=== PATIENT | male | born 1950 | race Caucasian/White ===

== ENCOUNTER 2018-03-15 11:38 | Emergency (ER) | payer MEDICAID, MEDICARE ==
[2018-03-15] MEDS ORDERED: NS 0.9% 1000 ML* 1,000 ML IV ONE (12:14)
--- NOTE | 2018-03-15 12:19 | ED ---
Neck Pain - HPI Summary HPI Summary: A 67 y/o male presents to ED c/o headache and upper neck pain reaching 8/10 in severity. Additionally c/o nausea, appetite changes, tremors and lightheadedness. As per triage, "Pt c/o neck pain, lightheadeness, and nausea. Neck pain started a while ago and it was just when he woke up in the morning and would go away by afternoon". According to the patient, for the past 1-2 months he has been experiencing neck stiffness and soreness when he wakes up in the AM, however, as the day goes on it went away. However, the neck pain and headache has been constant for the past 2 weeks with additional symptoms of dizziness (off-balance), lightheadedness, tremors, sleep changes, appetite changes, nausea starting yesterday. He noted that it initially started with neck pain, but gradually made its way to his head with the pain worsening over time, with last night being the worse. Furthermore, the pain is at its worse when he wakes up in AM and sometimes wakes him up from his sleep. Denies any runny nose, sore throat, chest pain/congestion, back pain, vision changes, difficulty with speech, weakness, or numbness in arms/legs. He noted that 1.5 years ago he had an issue with his throat as it he had difficulty swallowing. His physician referred him to a NT physician where an endoscopy and barium swallow where both tests were negative. He stated that it was found that it looks like his spine is pushing against his esophagus, however his difficulty swallowing and symptoms never went away. Head movement aggravates the symptoms, and the patient needs to ambulate slowly to evade the dizziness. He noted that he was able to eat yesterday AM. Patient takes several medications. Patient took Benadryl last night. Patient was on vacation recently, but he brought his own pillows from home. - History of Current Complaint Chief Complaint: EDNeckComplaint Stated Complaint: NECK PAIN, HEADACHE,LIGHTHEADED Time Seen by Provider: 03/15/18 11:59 Hx Obtained From: Patient Onset/Duration Of Injury/Symptoms: Days - Worst with additional symptoms since yesterday Mechanism Of Injury: No Known Trauma Timing: Constant, Lasting Weeks Onset/Duration: Sudden Onset, Started weeks ago, Still Present Severity Initially: Severe Severity Currently: Severe Pain Intensity: 8 Pain Scale Used: 0-10 Numeric Location: Discrete At: - Neck and head Aggravating Factors: Movement - Head movement and ambulance brings on dizziness Alleviating Factors: Nothing Associated Signs & Symptoms: Positive: Headache. Negative: Weakness - Allergies/Home Medications Allergies/Adverse Reactions: Allergies Allergy/AdvReac Type Severity Reaction Status Date / Time No Known Allergies Allergy Verified 03/15/18 11:48 Home Medications: Home Medications Omeprazole 40 mg PO BID 03/15/18 [History Confirmed 03/15/18] Simvastatin (NF) [Zocor (NF)] 40 mg PO BEDTIME 03/15/18 [History Confirmed 03/15] PMH/Surg Hx/FS Hx/Imm Hx Endocrine/Hematology History: Denies: Hx Diabetes Cardiovascular History: Reports: Hx Hypertension Respiratory History: Denies: Hx Asthma - Surgical History Surgery Procedure, Year, and Place: tonsillectomy as a childoral surgeries. left leg fx - surgical repair with leonor in place Infectious Disease History: No Infectious Disease History: Reports: Hx Shingles Denies: History Other Infectious Disease, Traveled Outside the [place] in Last 30 Days - Family History Known Family History: Positive: Cardiac Disease, Hypertension, Other - CVA, [place] - Social History Alcohol Use: None Substance Use Type: Reports: None Smoking Status (MU): Never Smoked Tobacco Review of Systems Negative: Fever Negative: Blurred Vision Negative: Sore Throat, Nasal Discharge Negative: Chest Pain - NEGATIVE: Congestion Positive: Nausea, Other - POSITIVE: Appetite changes Positive: Other - POSITIVE: Upper neck pain, tremors Neurological: Other - POSITIVE: sleep changes, lightheadedness, dizziness Positive: Headache. Negative: Weakness, Numbness All Other Systems Reviewed And Are Negative: Yes Physical Exam - Summary Physical Exam Summary: General: well-appearing, mild pain distress Skin: warm, color reflects adequate perfusion, dry Head: normal Eyes: EOMI, YARITZA ENT: normal Neck: supple, nontender Respiratory: CTA, breath sounds present Cardiovascular: RRR Abdomen: soft, nontender Bowel: present Musculoskeletal: normal, strength/ROM intact Neurological: sensory/motor intact, A&O x3 Psychological: affect/mood appropriate GCS: 15 Triage Information Reviewed: Yes Vital Signs On Initial Exam: Initial Vitals Temp Pulse Resp BP Pulse Ox 98.8 F 83 16 154/96 97 03/15/18 11:45 03/15/18 11:45 03/15/18 11:45 03/15/18 11:45 03/15/18 11:45 Vital Signs Reviewed: Yes Diagnostics - Vital Signs Vital Signs Temp Pulse Resp BP Pulse Ox 03/15/18 11:45 98.8 F 83 16 154/96 97 - Laboratory Result Diagrams: 03/15/18 12:30 03/15/18 12:30 Lab Statement: Any lab studies that have been ordered have been reviewed, and results considered in the medical decision making process. - CT CTA HEAD/NECK CT Interpretation Completed By: Radiologist - 1. No acute arterial abnormality including abrupt occlusion, hemorrhage, aneurysm or dissection. 2. Mostly calcified atherosclerosis of the bilateral carotid bulbs yielding approximately 50% degree narrowing on the right and 42% degree narrowing in the left. 3. Focus of coarse calcification at the proximal most segment of the right subclavian artery. Please correlate to any clinical signs of right upper extremity arterial deficiency including asymmetric blood pressures, right arm claudication or subclavian. ED PHYSICIAN REVIEWED THIS RADIOLOGY REPORT. steal phenomenon. 3. Additional chronic and degenerative changes described in the body the report. Neck Course/Dx - Course Course Of Treatment: Medications reviewed. Allergies noted. DISCUSSED RESULTS WITH THE PATIENT AND HIS . THE PLAN IS IBUPROFEN AND PREDNISONE; F/U PMD/ NEUROSURGERY, RETURN TO ED IF WORSE. - Diagnoses Provider Diagnoses: Neck pain, Headache Discharge - Sign-Out/Discharge Documenting (check all that apply): Patient Departure - DISCHARGE - Discharge Plan Condition: Stable Disposition: HOME Prescriptions: predniSONE TAB* [Deltasone 20 MG TAB*] 40 mg PO DAILY #10 tab Patient Education Materials: Acute Headache (ED), Neck Pain (ED) Referrals: John Nguyen MD [Medical Doctor] - Khadar Cortez MD [Primary Care Provider] - Additional Instructions: FOLLOW UP WITH YOUR PRIMARY CARE DOCTOR AND NEUROSURGERY. GET RECHECKED FOR ANY WORSENING OF YOUR CONDITION; PAIN, WEAKNESS, YOU FEEL ILL OR QUESTIONS OR CONCERNS. - Billing Disposition and Condition Condition: STABLE Disposition: Home - Attestation Statements Document Initiated by Scribe: Yes Documenting Scribe: Samir Egan Provider For Whom Scribe is Documenting (Include Credential): Chris Dupree MD Scribe Attestation: ISamir, scribed for Chris Dupree MD on 03/15/18 at 1821. Scribe Documentation Reviewed: Yes Provider Attestation: The documentation as recorded by the scribe, Samir Egan accurately reflects the service I personally performed and the decisions made by me, Chris Dupree MD
[2018-03-15 12:45] LABS: ABS Basophils 0 10^3/ul (0-0.2); ABS Eosinophils 0 10^3/ul (0-0.6); ABS Lymphocytes 1.7 10^3/ul (1.0-4.8); ABS Monocytes 1.3 10^3/ul (0-0.8); ABS Neutrophils 6.2 10^3/ul (1.5-7.7); ABS Nucleated RBC 0 10^3/ul; Eosinophil % 0.1 % (0-6); Hematocrit 47 % (42-52); Hemoglobin 16.3 g/dl (14.0-18.0); Lymphocyte % 18.6 % (25-47); Mean Corpuscular HGB Conc 34 g/dl (31-36); Mean Corpuscular Hemoglobin 32 pg (27-31); Mean Corpuscular Volume 92 fL (80-94); Mean Platelet Volume 8.6 um3 (7.4-10.4); Nucleated Red Blood Cells % 0.1; Platelet Count 193 10^3/ul (150-450); Red Blood Count 5.17 10^6/ul (4.00-5.40); Red Cell Distribution Width 14 % (10.5-15); White Blood Count 9.4 10^3/ul (3.5-10.8)
[2018-03-15 12:51] LABS: INR 0.97 (0.77-1.02)
[2018-03-15 12:53] LABS: EGFR Non-African American 54.7 (>60)
[2018-03-15] MEDS ORDERED: Iodixanol* (CONTRAST) 320 MG/ML 100 ML SDV IV ONE (13:02)
--- NOTE | 2018-03-15 13:58 | RAD ---
CPT II: CPT II Codes: 3100F INDICATION: Occipital headache and upper neck pain COMPARISON: None TECHNIQUE: A CT angiogram of the head and neck was performed before and after the injection of 80 cc of Visipaque 320. Contiguous axial sections were obtained from the thoracic inlet through the [place] of [place]. Images were reconstructed in the sagittal, coronal planes and in a 3-D volume rendered format. The distal cervical internal carotid artery diameter is used as the denominater for stenosis measurement. CTA NECK: There is a focus of coarse calcification at the proximal most portion of the right subclavian artery (series 7 image 29) immediately beyond the bifurcation of the subclavian and right common carotid arteries. The common and internal carotid arteries are patent without hemodynamically significant stenosis. Right: The low the carotid bifurcation the common carotid artery measures just under 8 mm in diameter. There is mixed attenuation, mostly calcified atherosclerosis narrowing the carotid bulb to 4 mm in diameter. This yields an approximate 50% degree stenosis. Left: Below the carotid bulb the left carotid artery measures 7 mm in diameter. There is coarse atherosclerotic calcification at the carotid bulb narrowing the lumen to 4 mm corresponding to approximately 42% degree stenosis. The vertebral arteries are patent without gross abnormality. CTA of the brain: The internal carotid, anterior and middle cerebral arteries appear are patent without high grade stenosis or occlusion. There is coarse atherosclerotic calcification of the petrous carotid arteries but patency appears to be maintained adequately. The vertebral, basilar and posterior cerebral arteries appear patent without high grade stenosis or occlusion. The [place] of [place] is complete with bilateral posterior communicating arteries identified. No focal luminal filling defect, aneurysm or vascular malformation is seen. NON-ARTERIAL FINDINGS: Degenerative changes of the cervical spine includes loss of intervertebral disc height and mild anterior marginal osteophyte formation at C4-C7. The visualized lung apices exhibit mild groundglass opacifications. IMPRESSION: 1. No acute arterial abnormality including abrupt occlusion, hemorrhage, aneurysm or dissection. 2. Mostly calcified atherosclerosis of the bilateral carotid bulbs yielding approximately 50% degree narrowing on the right and 42% degree narrowing in the left. 3. Focus of coarse calcification at the proximal most segment of the right subclavian artery. Please correlate to any clinical signs of right upper extremity arterial deficiency including asymmetric blood pressures, right arm claudication or subclavian steal phenomenon. 3. Additional chronic and degenerative changes described in the body the report.
[2018-03-15] MEDS ORDERED: predniSONE TAB* 20 MG PO ONE (15:18)
[2018-03-15] MEDS ORDERED: Ketorolac INJ* 30 MG/ML 1 ML VIAL IV ONE (15:18)
[2018-03-15 15:46] VITALS: BP 156/105
== END 2018-03-15 15:47 | disposition home or self-care (01) ==
LOC: ED 11:38
DX: M54.2 Cervicalgia (principal); R51 Headache; I65.23 Occlusion and stenosis of bilateral carotid arteries; I70.8 Atherosclerosis of other arteries; R42 Dizziness and giddiness; R11.0 Nausea
CPT/HCPCS: 36415; 70496; 70498; 80053; 84443; 85025; 85610; 85730; 86140; 86618; 96360; 96361; 96374; 99283; J1885; J7512; Q9967

== ENCOUNTER 2018-03-28 10:05 | Emergency (ER) | payer MEDICAID, MEDICARE ==
--- OUTSIDE RECORDS SUMMARY | 2018-03-28 10:19 | XMS REPORT ---
:1950 External Reference #:[id number] Author Organization [facility] Address [address] [place] [address] [place] [address] Phone [phone] Care Team Providers Name Role Phone Khadar Cortez III, MD Primary Care Physician Unavailable Payers Type Date Identification Numbers Payment Provider Subscriber Medicare Primary Effective: Policy Number: Medicare Jacey Adams 2011 [id number] PayID: [id number] [address] [place] [address] Medigap Part B Expires: 2015 Policy Number: [employer] Medicare Jacey Adams [id number] PayID: [id number] [address] [place] [address] Commercial Effective: 2011 Policy Number: [id number] So-Hi Jacey Adams Expires: 2016 Group Name: [id number] [address] PayID: [id number] [place] [address] Medigap Part B Policy Number: [id number] Medicaid Jacey Adams Group Name: 1 1 [address] PayID: [id number] [place] [address] Problems Date Description Provider Status Onset: 04/19/2011 Tobacco user Adwoa Gutierrez M.D. Active Onset: 04/19/2011 Neck pain Adwoa Gutierrez M.D. Active Onset: 08/30/2011 Disorder of lipid metabolism Adwoa Gutierrez M.D. Active Onset: 08/30/2011 Pure hypercholesterolemia Nurse Visit [facility] Active Onset: 08/30/2011 Benign essential hypertension Nurse Visit [facility] Active Onset: 06/29/2015 Essential hypertension Adwoa Gutierrez M.D. Active Family History Date Family Member(s) Problem(s) Comments General Heart Disease General Emphysema Social History Type Date Description Comments Lives With Alone Occupation [employer] to[employer] work Cigarette Use Pack Years - 35 1 ppd max; began age 21 Smoking Patient is a former smoker quit around 2010 Recreational Drug Use Never Used Drugs Exercise Type/Frequency Exercises regularly Exercise Type/Frequency golf summer General Hx Text geoffrey laid off cig 1.5 pk per day 30 yr etoh no exercise soft ball, golf 1 daughter no illegal drugs Allergies, Adverse Reactions, Alerts Date Description Reaction Status Severity Comments 04/19/2011 NKDA active Medications Medication Date Status Form Strength Qnty SIG Indications Ordering Provider Simvastatin 10/08/ Active Tablets 40mg 90tab 1 by mouth Khadar Palmer 2012 s every night Dana, at bedtime M.D. Enalapril 10/14/ Active Tablets 5mg 30tab take 1 I10 Khadar Palmer Maleate 2011 s tablet by Dana mouth once M.D. daily Omeprazole / Active Capsules 40mg 1 by mouth Unknown 0000 DR every day Ibuprofen / Active Capsules 200mg as needed Unknown 0000 Prednisone / Hx Tablets 20mg Leia 0000 - Chris 03/20/ MD Jose Alberto 2017 Triamcinolone 10/02/ Hx Ointment 0.1% 45gm apply to L82.0 Adwoa Acetonide 2016 - rash on Matt 07/01/ arms 2x per M.D. 2016 day Venlafaxine HCL 12/29/ Hx Tablets 37.5mg 49tab 1 tablets 272.0 Adwoa 2014 - s by mouth Matt 12/29/ every day M.D. 2014 for 1 week and the 2 tab by mouth every day for 3 Amoxicillin/Cla 07/26/ Hx Tablets 875-125mg 14tab 1 tab by 681.11 Adwoa vulanate 2014 - s mouth 2x Matt, Potassium 11/22/ per day M.D. 2014 Guaifenesin 06/30/ Hx Tablets 400mg 40tab 1 tab po Adwoa 2013 - s every 6 Matt 07/26/ hours as M.D. 2014 needed for congestion Doxycycline 06/28/ Hx Tablets 100mg 20tab 1 by mouth 466.0 Adwoa Hyclate 2013 twice a day Matt M.D. 2014 Guaifenesin ER 06/28/ Hx Tablets ER 600mg 60tab 1 by mouth 466.0 Adwoa 2013 - HR s twice a day Matt M.D. 2014 Triamcinolone 05/10/ Hx Cream 0.1% 60gm apply thin Adwoa Acetonide 2014 - film twice Matt 06/29/ daily M.D. 2014 Triamcinolone 04/20/ Hx Paste 0.1% 45gm apply to 705.81 Adwoa In Mtaba 2012 - rash 2x per Matt 06/22/ day M.D. 2012 Colace 12/03/ Hx Capsules 100mg 60cap 1 po bid 564.00 Adwoa 2012 Matt M.D. 2013 Chantix 05/28/ Hx Tablets 0.5mg X 11 QS take as Adwoa Starting Month 2011 - & 1 mg X directed Evans Gutierrez 10/08/ (0.5 mg po M.D. 2012 daily x3 days, 0.5 mg bid x 4 days, then 1 mg bid up to three months) Chantix 05/26/ Hx Tablets 1mg 60tab 1 tab po V15.82 Adwoa Continuing 2011 bid Sekou Gutierrez .D. 2011 Simvastatin 05/26/ Hx Tablets 20mg 30tab 1 po qd Adwoa 2011 Matt M.D. 2012 Simvastatin 01/02/ Hx Tablets 10mg 30tab take 1 Adwoa 2011 tablet at Matt 05/26/ bedtime M.D. 2011 Chantix 10/10/ Hx Tablets 1mg 60tab 1 po bid 305.1 Adwoa 2011 Matt .D. 2011 Lisinopril 09/12/ Hx Tablets 10mg 30tab 1 po qd 401.1 Adwoa 2011 - Matt .D. 2011 Atorvastatin 09/10/ Hx Tablets 10mg 30tab 1 po daily Josie Calcium 2011 Javier M.D. 2011 Robaxin-750 05/16/ Hx Tablets 750mg 50tab 1-2 po q John Lopez 2011 - s 8hrs prn Robin, muscle MRoss 2011 spasm Lipitor 05/10/ Hx Tablets 10mg 30tab 1 po qhs Partha 2010 s Jeff Ray, 09/10/ M.D.,FACP 2011 Chantix 04/19/ Hx Tablets 0.5mg X 11 1mont 1 po bid 305.1 Adwoa 2010 - & 1 mg X h Matt, M.D. 2011 Diovan / Hx Tablets 80mg 14tab 1 po qd Adwoa - s Matt, M.D. 2011 Enalapril / Hx Tablets 5mg 90tab 1 po qd Unknown Maleate 0000 - s 2011 Amoxicillin / Hx Capsules 500mg 4caps 4 tablets 1 Unknown 0000 - hour before 04/20/ dental work 2012 Omeprazole / Hx Capsules 20mg 90cap 1 po qd Unknown 0000 - DR s 2014 Pantoprazole / Hx Tablets DR 20mg 1 by mouth Unknown Sodium 0000 - every day 2015 Immunizations CPT Code Status Date Vaccine Lot # 30539 Given 05/14/2017 Pneumococcal Conjugate Vaccine 13 Valent For Intramuscular Use Vital Signs Date Vital Result Comment 03/19/2018 Height 68.5 inches 5'8.50" Weight 168.00 lb with shoes Heart Rate 70 /min BP Systolic 148 mmHg sitting left arm BP Diastolic 72 mmHg sitting left arm Body Temperature 98.2 F O2 % BldC Oximetry 94 % BMI (Body Mass Index) 25.2 kg/m2 2017 Height 68.5 inches 5'8.50" Weight 191.00 lb Heart Rate 63 /min BP Systolic Sitting 132 mmHg BP Diastolic Sitting 86 mmHg Body Temperature 98.4 F O2 % BldC Oximetry 96 % BMI (Body Mass Index) 28.6 kg/m2 10/17/2016 Weight 190.00 lb Heart Rate 82 /min BP Systolic Sitting 138 mmHg BP Diastolic Sitting 86 mmHg Respiratory Rate 15 /min Body Temperature 98.4 F O2 % BldC Oximetry 98 % 08/09/2016 Height 69 inches 5'9" Weight 191.12 lb Heart Rate 66 /min BP Systolic 120 mmHg BP Diastolic 80 mmHg Body Temperature 98.8 F O2 % BldC Oximetry 98 % BMI (Body Mass Index) 28.2 kg/m2 07/01/2016 Height 69 inches 5'9" Weight 192.00 lb Heart Rate 77 /min BP Systolic 130 mmHg BP Diastolic 86 mmHg Body Temperature 98.5 F O2 % BldC Oximetry 98 % BMI (Body Mass Index) 28.4 kg/m2 10/03/2015 Weight 191.00 lb Heart Rate 68 /min BP Systolic Sitting 100 mmHg BP Diastolic Sitting 60 mmHg Body Temperature 98.7 F O2 % BldC Oximetry 97 % 06/29/2015 Height 68.5 inches 5'8.50" Weight 191.00 lb Heart Rate 62 /min BP Systolic 116 mmHg BP Diastolic 72 mmHg Body Temperature 98.3 F O2 % BldC Oximetry 98 % BMI (Body Mass Index) 28.6 kg/m2 12/29/2014 Height 68.25 inches 5'8.25" Weight 185.50 lb Heart Rate 62 /min BP Systolic Sitting 118 mmHg BP Diastolic Sitting 81 mmHg O2 % BldC Oximetry 98 % BMI (Body Mass Index) 28.0 kg/m2 11/22/2014 Height 68.25 inches 5'8.25" Weight 187.00 lb Heart Rate 72 /min BP Systolic Sitting 140 mmHg BP Diastolic Sitting 82 mmHg Body Temperature 98.8 F O2 % BldC Oximetry 98 % BMI (Body Mass Index) 28.2 kg/m2 07/26/2014 Weight 192.00 lb Heart Rate 82 /min BP Systolic Sitting 128 mmHg BP Diastolic Sitting 82 mmHg Body Temperature 98.6 F 06/28/2014 Height 68.25 inches 5'8.25" Weight 190.00 lb Heart Rate 64 /min BP Systolic Sitting 122 mmHg BP Diastolic Sitting 80 mmHg BMI (Body Mass Index) 28.7 kg/m2 12/21/2013 Weight 185.00 lb Heart Rate 70 /min BP Systolic Sitting 128 mmHg BP Diastolic Sitting 82 mmHg 06/22/2013 Height 68.25 inches 5'8.25" Weight 185.00 lb Heart Rate 66 /min BP Systolic Sitting 120 mmHg BP Diastolic Sitting 86 mmHg BMI (Body Mass Index) 27.9 kg/m2 04/20/2013 Height 68.5 inches 5'8.50" Weight 186.50 lb Heart Rate 65 /min BP Systolic Sitting 110 mmHg BP Diastolic Sitting 68 mmHg BMI (Body Mass Index) 27.9 kg/m2 12/03/2012 Weight 177.75 lb Heart Rate 50 /min BP Systolic Sitting 110 mmHg BP Diastolic Sitting 70 mmHg Body Temperature 98.6 F O2 % BldC Oximetry 98 % 10/08/2012 Height 68.5 inches 5'8.50" Weight 187.50 lb Heart Rate 84 /min BP Systolic Sitting 134 mmHg BP Diastolic Sitting 80 mmHg BMI (Body Mass Index) 28.1 kg/m2 06/18/2012 Height 69 inches 5'9" Weight 177.00 lb Heart Rate 73 /min BP Systolic Sitting 123 mmHg BP Diastolic Sitting 75 mmHg BMI (Body Mass Index) 26.1 kg/m2 05/26/2012 Height 69 inches 5'9" Weight 175.00 lb Heart Rate 82 /min BP Systolic Sitting 118 mmHg BP Diastolic Sitting 80 mmHg Body Temperature 97.0 F BMI (Body Mass Index) 25.8 kg/m2 10/15/2011 Height 69 inches 5'9" Weight 181.00 lb Heart Rate 72 /min BP Systolic Sitting 122 mmHg l BP Diastolic Sitting 80 mmHg l BMI (Body Mass Index) 26.7 kg/m2 10/11/2011 Height 69 inches 5'9" Weight 182.00 lb Heart Rate 64 /min BP Systolic Sitting 118 mmHg BP Diastolic Sitting 70 mmHg BMI (Body Mass Index) 26.9 kg/m2 09/27/2011 Height 69 inches 5'9" Weight 183.00 lb Heart Rate 74 /min BP Systolic Sitting 118 mmHg L BP Diastolic Sitting 72 mmHg L BMI (Body Mass Index) 27.0 kg/m2 09/20/2011 Height 69 inches 5'9" Weight 180.00 lb Heart Rate 74 /min BP Systolic 133 mmHg BP Diastolic 80 mmHg BMI (Body Mass Index) 26.6 kg/m2 09/13/2011 Height 69 inches 5'9" Weight 183.00 lb Heart Rate 88 /min BP Systolic Sitting 144 mmHg BP Diastolic Sitting 100 mmHg BMI (Body Mass Index) 27.0 kg/m2 08/30/2011 Height 69 inches 5'9" Weight 183.00 lb Heart Rate 68 /min BP Systolic Sitting 132 mmHg BP Diastolic Sitting 90 mmHg BMI (Body Mass Index) 27.0 kg/m2 05/14/2011 Height 69 inches 5'9" Weight 182.00 lb Heart Rate 70 /min BP Systolic Sitting 136 mmHg BP Diastolic Sitting 84 mmHg BMI (Body Mass Index) 26.9 kg/m2 04/19/2011 Height 68.5 inches 5'8.50" Weight 180.50 lb Heart Rate 84 /min BP Systolic Sitting 132 mmHg BP Diastolic Sitting 98 mmHg BMI (Body Mass Index) 27.0 kg/m2 Results Test Date Test Result H/L Range Note CBC Auto Diff 03/15/2018 White Blood Count 9.4 10^3/uL 3.5-10.8 Red Blood Count 5.17 10^6/uL 4.00-5.40 Hemoglobin 16.3 g/dL 14.0-18.0 Hematocrit 47 % 42-52 Mean Corpuscular Volume 92 fL 80-94 Mean Corpuscular Hemoglobin 32 pg High 27-31 Mean Corpuscular HGB Conc 34 g/dL 31-36 Red Cell Distribution Width 14 % 10.5-15 Platelet Count 193 10^3/uL 150-450 Mean Platelet Volume 8.6 um3 7.4-10.4 Abs Neutrophils 6.2 10^3/uL 1.5-7.7 Abs Lymphocytes 1.7 10^3/uL 1.0-4.8 Abs Monocytes 1.3 10^3/uL High 0-0.8 Abs Eosinophils 0 10^3/uL 0-0.6 Abs Basophils 0 10^3/uL 0-0.2 Abs Nucleated RBC 0 10^3/uL Granulocyte % 66.6 % 38-83 Lymphocyte % 18.6 % Low 25-47 Monocyte % 14.3 % High 0-7 Eosinophil % 0.1 % 0-6 Basophil % 0.4 % 0-2 Nucleated Red Blood Cells % 0.1 Inr/Protime 03/15/2018 Inr 0.97 0.77-1.02 Laboratory test finding 03/15/2018 Partial Thrombo Time 29.1 seconds 26.0 -36.3 PTT Comp Metabolic Panel 03/15/2018 Sodium 133 mmol/L Low 135-145 Potassium 3.9 mmol/L 3.5-5.0 Chloride 100 mmol/L Low 101-111 Co2 Carbon Dioxide 23 mmol/L 22-32 Anion Gap 10 mmol/L 2-11 Glucose 99 mg/dL 70-100 Blood Urea Nitrogen 20 mg/dL 6-24 Creatinine 1.31 mg/dL High 0.67-1.17 BUN/Creatinine Ratio 15.3 8-20 Calcium 9.1 mg/dL 8.6-10.3 Total Protein 7.3 g/dL 6.4-8.9 Albumin 4.4 g/dL 3.2-5.2 Globulin 2.9 g/dL 2-4 Albumin/Globulin Ratio 1.5 1-3 Total Bilirubin 0.70 mg/dL 0.2-1.0 Alkaline Phosphatase 54 U/L 34-104 Alt 18 U/L 7-52 Ast 14 U/L 13-39 Egfr Non- 54.7 >60 Egfr 66.2 >60 1 Laboratory test finding 03/15/2018 C Reactive Protein 73.26 mg/L High < 8.01 TSH (Thyroid Stim Horm) 1.82 mcIU/mL 0.34-5.60 Comp Metabolic Panel 09/06/2017 Sodium 138 mmol/L 133-145 Potassium 4.7 mmol/L 3.5-5.0 Chloride 107 mmol/L 101-111 Co2 Carbon Dioxide 24 mmol/L 22-32 Anion Gap 7 mmol/L 2-11 Glucose 97 mg/dL 70-100 Blood Urea Nitrogen 22 mg/dL 6-24 Creatinine 1.25 mg/dL High 0.67-1.17 BUN/Creatinine Ratio 17.6 8-20 Calcium 9.6 mg/dL 8.6-10.3 Total Protein 6.7 g/dL 6.4-8.9 Albumin 4.2 g/dL 3.2-5.2 Globulin 2.5 g/dL 2-4 Albumin/Globulin Ratio 1.7 1-3 Total Bilirubin 0.40 mg/dL 0.2-1.0 Alkaline Phosphatase 43 U/L 34-104 Alt 30 U/L 7-52 Ast 18 U/L 13-39 Egfr Non- 57.8 >60 Egfr 74.3 >60 2 Lipid Profile (Trig/Chol/HDL) 09/06/2017 Triglycerides 64 mg/dL 3 Cholesterol 186 mg/dL 4 HDL Cholesterol 43.8 mg/dL 5 LDL Cholesterol 129 mg/dL 6 Comp Metabolic Panel 04/12/2016 Sodium 138 mmol/L 133-145 Potassium 4.5 mmol/L 3.5-5.0 Chloride 105 mmol/L 101-111 Co2 Carbon Dioxide 26 mmol/L 22-32 Anion Gap 7 mmol/L 2-11 Glucose 92 mg/dL 70-100 Blood Urea Nitrogen 17 mg/dL 6-24 Creatinine 1.23 mg/dL High 0.67-1.17 BUN/Creatinine Ratio 13.8 8-20 Calcium 9.0 mg/dL 8.6-10.3 Total Protein 6.6 g/dL 6.4-8.9 Albumin 4.1 g/dL 3.2-5.2 Globulin 2.5 g/dL 2-4 Albumin/Globulin Ratio 1.6 1-3 Total Bilirubin 0.50 mg/dL 0.2-1.0 Alkaline Phosphatase 43 U/L 34-104 Alt 24 U/L 7-52 Ast 16 U/L 13-39 Egfr Non- 59.2 >60 Egfr 76.2 >60 7 Lipid Profile (Trig/Chol/HDL) 12/26/2014 Triglycerides 78 mg/dL 8 Cholesterol 177 mg/dL 9 HDL Cholesterol 44.0 mg/dL 10 LDL Cholesterol 117 mg/dL 11 Comp Metabolic Panel 12/26/2014 Sodium 135 mmol/L 133-145 Potassium 4.3 mmol/L 3.5-5.0 Chloride 106 mmol/L 101-111 Co2 Carbon Dioxide 23 mmol/L 22-32 Anion Gap 6 mmol/L 2-11 Glucose 92 mg/dL 70-100 Blood Urea Nitrogen 18 mg/dL 6-24 Creatinine 1.17 mg/dL 0.67-1.17 BUN/Creatinine Ratio 15.4 8-20 Calcium 8.8 mg/dL 8.6-10.3 Total Protein 6.4 g/dL 6.4-8.9 Albumin 4.1 g/dL 3.2-5.2 Globulin 2.3 g/dL 2-4 Albumin/Globulin Ratio 1.8 1-3 Total Bilirubin 0.60 mg/dL 0.2-1.0 Alkaline Phosphatase 48 U/L 34-104 Alt 20 U/L 7-52 Ast 14 U/L 13-39 Egfr Non- 63.0 >60 Egfr 81.0 >60 12 Laboratory test finding 12/26/2014 PSA Screening 2.148 ng/mL 0-4.000 13 Comp Metabolic Panel 06/24/2014 Sodium 135 mmol/L 133-145 14 Potassium 4.9 mmol/L 3.5-5.0 14 Chloride 103 mmol/L 101-111 14 Co2 Carbon Dioxide 25 mmol/L 22-32 14 Anion Gap 7 mmol/L 2-11 14 Glucose 85 mg/dL 70-100 14 Blood Urea Nitrogen 16 mg/dL 6-24 14 Creatinine 1.26 mg/dL High 0.67-1.17 14 BUN/Creatinine Ratio 12.7 8-20 14 Calcium 9.2 mg/dL 8.6-10.3 14 Total Protein 7.0 g/dL 6.4-8.9 14 Albumin 4.3 g/dL 3.2-5.2 14 Globulin 2.7 g/dL 2-4 14 Albumin/Globulin Ratio 1.6 1-3 14 Total Bilirubin 0.50 mg/dL 0.2-1.0 14 Alkaline Phosphatase 50 U/L 34-104 14 Alt 43 U/L 7-52 14 Ast 28 U/L 13-39 14 Egfr Non- 58.0 >60 14 Egfr 74.6 >60 14, 15 Lipid Profile (Trig/Chol/HDL) 06/24/2014 Triglycerides 83 mg/dL 14, 16 Cholesterol 201 mg/dL 14, 17 HDL Cholesterol 47.2 mg/dL 14, 18 LDL Cholesterol 137 mg/dL 14, 19 Laboratory test finding 12/15/2013 Hepatitis C Antibody Nonreactive Nonreactive CBC Auto Diff 12/15/2013 White Blood Count 7.0 10^3/uL 4.8-10.8 Red Blood Count 4.74 10^6/uL 4.0-5.4 Hemoglobin 14.4 g/dL 14.0-18.0 Hematocrit 43 % 42-52 Mean Corpuscular Volume 92 fL 80-94 Mean Corpuscular Hemoglobin 31 pg 27-31 Mean Corpuscular HGB Conc 33 g/dL 31-36 Red Cell Distribution Width 13 % 10.5-15 Platelet Count 239 10^3/uL 150-450 Mean Platelet Volume 8 um3 7.4-10.4 Abs Neutrophils 4.0 10^3/uL 1.5-7.7 Abs Lymphocytes 2.3 10^3/uL 1.0-4.8 Abs Monocytes 0.5 10^3/uL 0-0.8 Abs Eosinophils 0.1 10^3/uL 0-0.6 Abs Basophils 0.1 10^3/uL 0-0.2 Abs Nucleated RBC 0 10^3/uL Granulocyte % 56.6 % 38-83 Lymphocyte % 32.8 % 25-47 Monocyte % 7.6 % 1-9 Eosinophil % 1.9 % 0-6 Basophil % 1.1 % 0-2 Nucleated Red Blood Cells % 0.1 Laboratory test finding 12/15/2013 PSA Screening 2.262 ng/mL 0-4.000 20 Lipid Profile (Trig/Chol/HDL) 12/15/2013 Triglycerides 95 mg/dL 21 Cholesterol 182 mg/dL 22 HDL Cholesterol 38.7 mg/dL 23 LDL Cholesterol 124 mg/dL 24 Comp Metabolic Panel 03/22/2013 Sodium 139 mmol/L 133-145 Potassium 4.5 mmol/L 3.5-5.0 Chloride 106 mmol/L 101-111 Co2 Carbon Dioxide 27.0 mmol/L 22-32 Anion Gap 6.0 mmol/L 2-11 Glucose 98 mg/dL 70-100 Blood Urea Nitrogen 17 mg/dL 6-24 Creatinine 1.10 mg/dL 0.50-1.40 BUN/Creatinine Ratio 15.5 8-20 Calcium 9.6 mg/dL 8.1-9.9 Total Protein 6.8 g/dL 6.2-8.1 Albumin 3.8 g/dL 3.2-5.2 Globulin 3.0 g/dL 2-4 Albumin/Globulin Ratio 1.3 1-3 Total Bilirubin 0.7 mg/dL 0.4-1.5 Alkaline Phosphatase 49 U/L 30-110 Alt 23 U/L 14-54 Ast 18 U/L 12-42 Egfr Non- 68.1 >60 Egfr 87.5 >60 25 Lipid Profile (Trig/Chol/HDL) 01/29/2013 Triglycerides 72 mg/dL 40-200 Cholesterol 182 mg/dL Less than 200 HDL Cholesterol 48 mg/dL 40-60 26 Cholesterol/HDL Ratio 3.8 Average 1-4.44 LDL Cholesterol 119.6 High Less Than 100 27 Liver Function Panel 01/29/2013 Total Protein 6.3 g/dL 6.2-8.1 Albumin 3.8 g/dL 3.2-5.2 Globulin 2.5 g/dL 2-4 Albumin/Globulin Ratio 1.5 1-3 Total Bilirubin 0.7 mg/dL 0.4-1.5 Direct Bilirubin 0.1 mg/dL 0.1-0.5 Indirect Bilirubin 0.6 mg/dL 0.3-1.0 Alkaline Phosphatase 53 U/L 30-110 Alt 20 U/L 14-54 Ast 18 U/L 12-42 Laboratory test 01/29/2013 Glucose 94 mg/dL 70-100 28 finding Laboratory test 12/11/2012 TSH (Thyroid Stimulating 1.03 miu/mL 0.34- 5.60 finding Horm) Lipid Profile 10/02/2012 Triglycerides 86 mg/dL 40-200 (Trig/Chol/HDL) Cholesterol 209 mg/dL High Less than 200 HDL Cholesterol 47 mg/dL 40-60 29 Cholesterol/HDL Ratio 4.5 Average High 1-4.44 LDL Cholesterol 144.8 mg/dL High Less Than 100 30 Laboratory test finding 05/26/2012 Throat Culture (SEE NOTE) 31 Lipid Profile (Trig/Chol/HDL) 05/21/2012 Triglycerides 68 mg/dL 40-200 Cholesterol 220 mg/dL High Less than 200 32 HDL Cholesterol 47 mg/dL 40-60 33 Cholesterol/HDL Ratio 4.7 AVERAGE High 1-4.44 LDL Cholesterol 159.4 mg/dL High Less Than 100 34 CBC Auto Diff 10/13/2011 White Blood Count 8.9 CUMM 4.8-10.8 Red Cell Count 4.79 CUMM 4.6-6.2 Hemoglobin 15.6 g/dL 14.0-18.0 Hematocrit 45 % 42-52 Mean Corpuscular Volume 93 um3 80-94 Mean Corpuscular Hemoglob 33 pg High 27-31 Mean Corpuscular HGB Cone 35 g/dL 32-36 Redcell Distribution WDTH 13 % 10.5-15 Platelet Count 250 CUMM 150-450 Mean Platelet Volume 8.3 um3 7.4-10.4 Gran % 72.9 % 38-83 Lymph % 20.6 % Low 25-47 Mononuclear % 5.1 % 1-9 Eosinophil % 0.5 % 0-6 Basophil % 0.9 % 0-2 Abs Lymphs 1.8 1.0-4.8 Abs Mononuclear 0.5 0-0.8 Absolute Neutrophil Count 6.5 1.5-7.7 Abs Eosinophils 0 0-0.6 Abs Basophils 0.1 0-0.2 Comp Metabolic Panel 10/13/2011 Sodium 138 mmol/L 135-145 Potassium 4.5 mmol/L 3.5-5.0 Chloride 107 mmol/L 101-111 Co2 (Carbon Dioxide) 26.0 mmol/L 22-32 Anion Gap 5.0 mmol/L 2-11 35 Glucose 101 mg/dL High 70-100 BUN 16 mg/dL 6-24 Creatinine 1.1 mg/dL 0.50-1.40 One Over Creatinine 0.90 BUN/Creatinine Ratio 14.5 8-20 Calcium 9.4 mg/dL 8.1-9.9 Total Protein 7.1 GM/DL 6.2-8.1 Albumin 3.9 GM/DL 3.2-5.2 Globulin 3.2 GM/DL 2-4 Albumin/Globulin Ratio 1.2 1-3 Bilirubin Total 0.6 mg/dL 0.4-1.5 36 Alkaline Phosphatase 53 U/L 39-117 Alt (SGPT) 40 U/L 17-63 Ast (Sgot) 25 U/L 12-42 eGFR Non- 68.3 > 60 eGFR 87.8 > 60 37 Laboratory test finding 10/13/2011 Troponin-I 0.01 NG/ML 0-0.06 38 Lipid Panel - [facility] 08/19/2011 CPK (Creatine Kinase) 92 U/L 0-200 Lipid Profile (Trig/Chol/HDL) 08/19/2011 Triglyceride 80 mg/dL 40-200 Cholesterol 195 mg/dL Less Than 200 39 High Density Lipoprotein 42 mg/dL 40-60 40 Cholesterol/HDL Ratio 4.64 AVERAGE 1-4.97 Low Density Lipoprotein 137 mg/dL High Less Than 100 41 Comp Metabolic Panel 08/19/2011 Sodium 137 mmol/L 135-145 Potassium 4.8 mmol/L 3.5-5.0 Chloride 106 mmol/L 101-111 Co2 (Carbon Dioxide) 25.0 mmol/L 22-32 Anion Gap 6.0 mmol/L 2-11 42 Glucose 109 mg/dL High 70-100 BUN 17 mg/dL 6-24 Creatinine 1.3 mg/dL 0.50-1.40 One Over Creatinine 0.76 BUN/Creatinine Ratio 13.1 8-20 Calcium 9.0 mg/dL 8.1-9.9 Total Protein 6.5 GM/DL 6.2-8.1 Albumin 4.0 GM/DL 3.2-5.2 Globulin 2.5 GM/DL 2-4 Albumin/Globulin Ratio 1.6 1-3 Bilirubin Total 0.7 mg/dL 0.4-1.5 43 Alkaline Phosphatase 51 U/L 39-117 Alt (SGPT) 37 U/L 17-63 Ast (Sgot) 22 U/L 12-42 eGFR Non- 56.3 > 60 eGFR 72.4 > 60 44 Manual Differential 05/07/2011 Polysegmented Neutrophil 66 % 38-83 Band Neutrophil 1 % 0-8 Lymphocyte 28 % 25-47 Monocyte 5 % 0-13 Absolute Neutrophil Count 5.5 Anisocytosis SLIGHT Ovalocytes FEW Laboratory test finding 05/07/2011 PSA Screening 1.83 NG/ML 0-4 45 CBC Auto Diff 05/07/2011 White Blood Count 8.3 CUMM 4.8-10.8 Red Cell Count 4.93 CUMM 4.6-6.2 Hemoglobin 16.0 g/dL 14.0-18.0 Hematocrit 46 % 42-52 Mean Corpuscular Volume 94 um3 80-94 Mean Corpuscular Hemoglob 32 pg High 27-31 Mean Corpuscular HGB Cone 35 g/dL 32-36 Redcell Distribution WDTH 13 % 10.5-15 Platelet Count 249 CUMM 150-450 Mean Platelet Volume 9.2 um3 7.4-10.4 46 Comp Metabolic Panel 05/07/2011 Sodium 138 mmol/L 135-145 Potassium 4.6 mmol/L 3.5-5.0 Chloride 104 mmol/L 101-111 Co2 (Carbon Dioxide) 26.0 mmol/L 22-32 Anion Gap 8.0 mmol/L 2-11 47 Glucose 98 mg/dL 70-100 BUN 13 mg/dL 6-24 Creatinine 1.2 mg/dL 0.50-1.40 One Over Creatinine 0.83 BUN/Creatinine Ratio 10.8 8-20 Calcium 9.8 mg/dL 8.1-9.9 Total Protein 6.3 GM/DL 6.2-8.1 Albumin 3.9 GM/DL 3.6-5.4 Globulin 2.4 GM/DL 2-4 Albumin/Globulin Ratio 1.6 1-3 Bilirubin Total 0.8 mg/dL 0.4-1.5 48 Alkaline Phosphatase 47 U/L 39-117 Alt (SGPT) 27 U/L 17-63 Ast (Sgot) 21 U/L 12-42 eGFR Non- 62.0 > 60 eGFR 79.7 > 60 49 Lipid Profile (Trig/Chol/HDL) 05/07/2011 Triglyceride 112 mg/dL 40-200 Cholesterol 302 mg/dL High Less Than 200 50 High Density Lipoprotein 45 mg/dL 40-60 51 Cholesterol/HDL Ratio 6.71 AVERAGE High 1-4.97 Low Density Lipoprotein 235 mg/dL High Less Than 100 52 1 Because ethnic data is not always readily available, this report includes an eGFR for both -Americans and non- Americans. The National Kidney Disease Education Program (NKDEP) does not endorse the use of the MDRD equation for patients that are not between the ages of 18 and 70, are , have extremes of body size, muscle mass, or nutritional status, or are non- or non-. According to the National Kidney Foundation, irrespective of diagnosis, the stage of the disease is based on the level of kidney function: Stage Description GFR(mL/min/1.73 m(2)) 1 Kidney damage with normal or decreased GFR 90 2 Kidney damage with mild decrease in GFR 60-89 3 Moderate decrease in GFR 30-59 4 Severe decrease in GFR 15-29 5 Kidney failure <15 (or dialysis) 2 Because ethnic data is not always readily available, this report includes an eGFR for both -Americans and non- Americans. The National Kidney Disease Education Program (NKDEP) does not endorse the use of the MDRD equation for patients that are not between the ages of 18 and 70, are , have extremes of body size, muscle mass, or nutritional status, or are non- or non-. According to the National Kidney Foundation, irrespective of diagnosis, the stage of the disease is based on the level of kidney function: Stage Description GFR(mL/min/1.73 m(2)) 1 Kidney damage with normal or decreased GFR 90 2 Kidney damage with mild decrease in GFR 60-89 3 Moderate decrease in GFR 30-59 4 Severe decrease in GFR 15-29 5 Kidney failure <15 (or dialysis) 3 Desirable: <150 Borderline High: 150-199 High: 200-499 Very High: >500 4 Desirable: <200 Borderline High: 200-239 High: >239 5 Low: <40 Desirable: 40-60 High: >60 6 Desirable: <100 Near Optimal: 100-129 Borderline High: 130-159 High: 160-189 Very High: >189 7 Because ethnic data is not always readily available, this report includes an eGFR for both -Americans and non- Americans. The National Kidney Disease Education Program (NKDEP) does not endorse the use of the MDRD equation for patients that are not between the ages of 18 and 70, are , have extremes of body size, muscle mass, or nutritional status, or are non- or non-. According to the National Kidney Foundation, irrespective of diagnosis, the stage of the disease is based on the level of kidney function: Stage Description GFR(mL/min/1.73 m(2)) 1 Kidney damage with normal or decreased GFR 90 2 Kidney damage with mild decrease in GFR 60-89 3 Moderate decrease in GFR 30-59 4 Severe decrease in GFR 15-29 5 Kidney failure <15 (or dialysis) 8 Desirable <150 Borderline high 150-199 High 200-499 Very High >500 9 Desirable <200 Borderline high 200-239 High >239 10 Low <40 Desirable: 40-60 High: >60 11 Desirable: <100 mg/dL Near Optimal: 100-129 mg/dL Borderline High: 130-159 mg/dL High: 160-189 mg/dL Very High: >189 mg/dL 12 Because ethnic data is not always readily available, this report includes an eGFR for both -Americans and non- Americans. The National Kid[employer] Disease Education Program (NKDEP) does not endorse the use of the MDRD equation for patients that are not between the ages of 18 and 70, are , have extremes of body size, muscle mass, or nutritional status, or are non- or non-. According to the National Kidney Foundation, irrespective of diagnosis, the stage of the disease is based on the level of kidney function: Stage Description GFR(mL/min/1.73 m(2)) 1 Kidney damage with normal or decreased GFR 90 2 Kidney damage with mild decrease in GFR 60-89 3 Moderate decrease in GFR 30-59 4 Severe decrease in GFR 15-29 5 Kidney failure <15 (or dialysis) 13 Serum levels of PSA measured using the [employer] DXI Hybritech immunoassay should not be interpreted as absolute evidence of the presence or absence of disease. The PSA value should be used in conjunction with other pertinent clinical diagnostic procedures. The values obtained with different assay methods or kits cannot be used interchangeably. 14 FASTING 15 Because ethnic data is not always readily available, this report includes an eGFR for both -Americans and non- Americans. The National Kidney Disease Education Program (NKDEP) does not endorse the use of the MDRD equation for patients that are not between the ages of 18 and 70, are , have extremes of body size, muscle mass, or nutritional status, or are non- or non-. According to the National Kidney Foundation, irrespective of diagnosis, the stage of the disease is based on the level of kidney function: Stage Description GFR(mL/min/1.73 m(2)) 1 Kidney damage with normal or decreased GFR 90 2 Kidney damage with mild decrease in GFR 60-89 3 Moderate decrease in GFR 30-59 4 Severe decrease in GFR 15-29 5 Kidney failure <15 (or dialysis) 16 Desirable <150 Borderline high 150-199 High 200-499 Very High >500 17 Desirable <200 Borderline high 200-239 High >239 18 Low <40 Desirable: 40-60 High: >60 19 Desirable <100 Near Optimal 100-129 Borderline high 130-159 High 160-189 Very High >189 20 Serum levels of PSA measured using the [employer] DXI Hybritech immunoassay should not be interpreted as absolute evidence of the presence or absence of disease. The PSA value should be used in conjunction with other pertinent clinical diagnostic procedures. The values obtained with different assay methods or kits cannot be used interchangeably. 21 Desirable <150 Borderline high 150-199 High 200-499 Very High >500 22 Desirable <200 Borderline high 200-239 High >239 23 Low <40 Desirable: 40-60 High: >60 24 Desirable <100 Near Optimal 100-129 Borderline high 130-159 High 160-189 Very High >189 25 Because ethnic data is not always readily available, this report includes an eGFR for both -Americans and non- Americans. The National Kidney Disease Education Program (NKDEP) does not endorse the use of the MDRD equation for patients that are not between the ages of 18 and 70, are , have extremes of body size, muscle mass, or nutritional status, or are non- or non-. According to the National Kidney Foundation, irrespective of diagnosis, the stage of the disease is based on the level of kidney function: Stage Description GFR(mL/min/1.73 m(2)) 1 Kidney damage with normal or decreased GFR 90 2 Kidney damage with mild decrease in GFR 60-89 3 Moderate decrease in GFR 30-59 4 Severe decrease in GFR 15-29 5 Kidney failure <15 (or dialysis) 26 HDL Interpretation: Undesirable: High Risk: Less than 40 mg/dL Desirable: Low Risk: Greater than 60 mg/dL 27 LDL Interpretation: Low Risk Optimal Level: LDL Less than 100 mg/dL Near or Above Optimal: LDL 100-129 mg/dL Borderline High Risk: LDL 130-159 mg/dL High Risk: LDL 160-189 mg/dL Very High Risk: LDL Greater than 189 mg/dL 28 FASTING 10 HOUR 29 HDL Interpretation: Undesirable: High Risk: Less than 40 MG/DL Desirable: Low Risk: Greater than 60 MG/DL 30 LDL Interpretation: Low Risk Optimal Level: LDL Less than 100 MG/DL Near or Above Optimal: LDL 100-129 MG/DL Borderline High Risk: LDL 130-159 MG/DL High Risk: LDL 160-189 MG/DL Very High Risk: LDL Greater than 189 MG/DL 31 RUN DATE: 05/28/12 [facility] LAB LIVE PAGE 1 RUN TIME: [address] [place] [address] Specimen Inquiry Name: JACEY ADAMS : [address]: Adwoa Gutierrez MD Acct: [id number] Unit: [id number] AGE: 61 Location: [facility] Re05/26/12 SEX: M Status: REG REF SPEC: [id number] ERNESTINA: 05/26/12-1217 [facility] DR: Matt CHARLES, Adwoa Morfin REQ: [id number] RECD: 05/26/12 STATUS: COMP _ SOURCE: THROAT SPDESC: ORDERED: Throat Culture QUERIES: Medent Number [id number] Procedure Result Verified Site Throat Culture Final 05/28/12- 0936 ML Organism 1 NORMAL ASCENCION Quantity 2+ Throat cultures are clinically indicated to detect the presence of group A strep, arcanobacterium and yeast. END OF REPORT * ML=Testing performed at Main Lab DEPARTMENT OF PATHOLOGY, [address] [place] [address] Geovany Mckinnon M.D. Director [facility] Permit #[id number] 32 Desirable: Less than 200 MG/DL Borderline-High Risk: 200-239 MG/DL High-Risk: 240 MG/DL and over 33 HDL Interpretation: Undesirable: High Risk: Less than 40 MG/DL Desirable: Low Risk: Greater than 60 MG/DL 34 LDL Interpretation: Low Risk Optimal Level: LDL Less than 100 MG/DL Near or Above Optimal: LDL 100-129 MG/DL Borderline High Risk: LDL 130-159 MG/DL High Risk: LDL 160-189 MG/DL Very High Risk: LDL Greater than 189 MG/DL 35 Anion gap measurement may be of limited value in the presence of any alkalosis, especially in a combined acid base disorder. . 36 A metabolite of Naproxen, O-desmethylnaproxen, has been shown to interfere with the [place] method for measuring total bilirubin. Samples from patients who have taken Naproxen have shown spurious elevation in total bilirubin levels. 37 Because ethnic data is not always readily available, this report includes an eGFR for both -Americans and non- Americans. The National Kidney Disease Education Program (NKDEP) does not endorse the use of the MDRD equation for patients that are not between the ages of 18 and 70, are , have extremes of body size, muscle mass, or nutritional status, or are non- or non-. According to the National Kidney Foundation, irrespective of diagnosis, the stage of the disease is based on the level of kidney function: Stage Description GFR(mL/min/1.73 m(2)) 1 Kidney damage with normal or decreased GFR 90 2 Kidney damage with mild decrease in GFR 60-89 3 Moderate decrease in GFR 30-59 4 Severe decrease in GFR 15-29 5 Kidney failure <15 (or dialysis) 38 New Reference Range and Interpretation effective 04/16/2002 TnI (ng/ml) INTERPRETATION Less Than 0.06 ng/mL NOT SUPPORTIVE OF DIAGNOSIS OF RI 0.06 - 0.50 ng/ml INDETERMINATE: SUGGEST SERIAL STUDIES IF CLINICALLY INDICATED. Greater than 0.5 ng/mL CONSISTENT WITH DIAGNOSIS OF RI . 39 CHOLESTEROL INTERPRETATION: Desirable: Less than 200 MG/DL Borderline-High Risk: 200-239 MG/DL High-Risk: 240 MG/DL and over 40 HDL INTERPRETATION: Undesirable: High Risk: Less than 40 MG/DL Desirable: Low Risk: Greater than 60 MG/DL 41 LDL INTERPRETATION: Low Risk Optimal Level: LDL Less than 100 MG/DL Near or Above Optimal: LDL 100-129 MG/DL Borderline High Risk: LDL 130-159 MG/DL High Risk: LDL 160-189 MG/DL Very High Risk: LDL Greater than 189 MG/DL 42 Anion gap measurement may be of limited value in the presence of any alkalosis, especially in a combined acid base disorder. . 43 A metabolite of Naproxen, O-desmethylnaproxen, has been shown to interfere with the [place] method for measuring total bilirubin. Samples from patients who have taken Naproxen have shown spurious elevation in total bilirubin levels. 44 Because ethnic data is not always readily available, this report includes an eGFR for both -Americans and non- Americans. The National Kidney Disease Education Program (NKDEP) does not endorse the use of the MDRD equation for patients that are not between the ages of 18 and 70, are , have extremes of body size, muscle mass, or nutritional status, or are non- or non-. According to the National Kidney Foundation, irrespective of diagnosis, the stage of the disease is based on the level of kidney function: Stage Description GFR(mL/min/1.73 m(2)) 1 Kidney damage with normal or decreased GFR 90 2 Kidney damage with mild decrease in GFR 60-89 3 Moderate decrease in GFR 30-59 4 Severe decrease in GFR 15-29 5 Kidney failure <15 (or dialysis) 45 * SERUM LEVELS OF PSA MEASURED USING THE [employer] ACCESS HYBRITECH IMMUNOASSAY SHOULD NOT BE INTERPRETED ABSOLUTE EVIDENCE OF THE PRESENCE OR ABSENCE OF DISEASE. THE PSA VALUE SHOULD BE USED IN CONJUNCTION WITH OTHER PERTINENT CLINICAL DIAGNOSTIC PROCEDURES. 46 NR 47 Anion gap measurement may be of limited value in the presence of any alkalosis, especially in a combined acid base disorder. . 48 A metabolite of Naproxen, O-desmethylnaproxen, has been shown to interfere with the Jendrassik-[place] method for measuring total bilirubin. Samples from patients who have taken Naproxen have shown spurious elevation in total bilirubin levels. 49 Because ethnic data is not always readily available, this report includes an eGFR for both -Americans and non- Americans. The National Kidney Disease Education Program (NKDEP) does not endorse the use of the MDRD equation for patients that are not between the ages of 18 and 70, are , have extremes of body size, muscle mass, or nutritional status, or are non- or non-. According to the National Kidney Foundation, irrespective of diagnosis, the stage of the disease is based on the level of kidney function: Stage Description GFR(mL/min/1.73 m(2)) 1 Kidney damage with normal or decreased GFR 90 2 Kidney damage with mild decrease in GFR 60-89 3 Moderate decrease in GFR 30-59 4 Severe decrease in GFR 15-29 5 Kidney failure <15 (or dialysis) 50 CHOLESTEROL INTERPRETATION: Desirable: Less than 200 MG/DL Borderline-High Risk: 200-239 MG/DL High-Risk: 240 MG/DL and over 51 HDL INTERPRETATION: Undesirable: High Risk: Less than 40 MG/DL Desirable: Low Risk: Greater than 60 MG/DL 52 LDL INTERPRETATION: Low Risk Optimal Level: LDL Less than 100 MG/DL Near or Above Optimal: LDL 100-129 MG/DL Borderline High Risk: LDL 130-159 MG/DL High Risk: LDL 160-189 MG/DL Very High Risk: LDL Greater than 189 MG/DL Procedures Date CPT Code Description Status 10/30/2012 Colonoscopy Completed 07/14/2011 Colonoscopy Completed Encounters Type Date Location Provider CPT E/M Dx Office Visit 10/17/2016 [facility] Internal Medicine Khadar Cortez, 63123 R13.10 2:20p - Donna Henry R07.0 Office Visit 08/09/2016 11:40a [facility] Internal Medicine Khadar Cortez, 39348 R07.0 - Donna Henry Office Visit 10/03/2015 1:00p [facility] Medicine Adwoa Gutierrez M.D. 50198 L82.0 - [place] Office Visit 06/29/2015 9:00a [facility] Medicine Adwoa Gutierrez M.D. 52637 Z00.00 - Yohan E78.0 I10 Z12.5 Office Visit 12/29/2014 10:00a [facility] Medicine Adwoa Gutierrez M.D. 24444 272.0 - [place] 401.1 Office Visit 11/22/2014 9:40a [facility] Medicine Adwoa Gutierrez M.D. 54922 842.10 - [place] 272.0 401.1 V76.44 Office Visit 07/26/2014 8:40a [facility] Medicine Adwoa Gutierrez M.D. 59926 681.11 - [place] Office Visit 06/28/2014 3:40p [facility] Medicine Adwoa Gutierrez M.D. 25394 V70.0 - [place] 272.0 401.1 845.13 466.0 Office Visit 12/21/2013 9:40a [facility] Medicine Adwoa Gutierrez M.D. 95248 V73.99 - [place] 401.1 272.0 Office Visit 06/22/2013 9:00a [facility] Medicine Adwoa Gutierrez M.D. 71583 V70.0 - [place] 401.1 272.0 V15.82 V76.44 530.85 780.79 V73.99 Office Visit 04/20/2013 1:40p [facility] Medicine Adwoa Gutierrez M.D. 04742 401.1 - [place] 272.0 V15.82 705.81 786.05 Office Visit 12/03/2012 1:40p [facility] Medicine Adwoa Gutierrez M.D. 10138 564.00 - [place] 530.85 Office Visit 10/08/2012 1:00p [facility] Medicine Adwoa Gutierrez M.D. 53274 272.0 - [place] 401.1 V15.82 389.9 790.6 Office Visit 06/18/2012 1:30p [facility] Medicine Josie Herrera, 73127 V58.32 - Yohan Henry Office Visit 05/26/2012 10:40a [facility] Adwoa Gutierrez M.D. 57859 V70.0 - [place] V15.82 272.0 401.1 461.9 792.1 448.1 Office Visit 10/15/2011 9:40a [facility] Medicine Adwoa Gutierrez M.D. 79142 401.1 - [place] Office Visit 10/11/2011 10:00a [facility] Medicine Adwoa Gutierrez M.D. 54057 401.1 - [place] 305.1 Office Visit 09/27/2011 10:20a [facility] Medicine Adwoa Gutierrez M.D. 22107 787.91 - [place] 305.1 401.1 Office Visit 09/20/2011 3:00p [facility] M.D. 72864 726.5 C.M.A. Office Visit 09/13/2011 10:20a [facility] Internal Medicine - Adwoa Gutierrez M.D. 67554 401.1 [place] 305.1 Office Visit 08/30/2011 10:20a [facility] Adwoa Gutierrez M.D. 80334 843.8 - [place] 272.9 Office Visit 06/11/2011 11:15a [facility], 35919 723.1 [facility] M.Jeff Office Visit 05/16/2011 1:30p [facility], 92853 723.1 [facility] Elaine Office Visit 05/14/2011 2:40p DO Not Use [employer] AT Adwoa Gutierrez, 77083 305.1 Reese Henry 723.1 272.9 V76.51 V70.0 Office Visit 04/19/2011 10:00a DO Not Use [employer] AT Adwoa Gutierrez M.D. 50147 305.1 [facility] 723.1 709.8 Plan of Care Future Appointment(s):2018 10:20 am - Khadar Cortez M.D. at [facility] Internal Medicine - Tqttvgmvk86/06/2018 - Khadar Cortez M.D.M54.2 CervicalgiaNew Xrays:MRI Cervical Spine WoReferral:John Nguyen M.D., Surgery ,IqwqdjllodpkV52.10 Dysphagia, unspecified
--- OUTSIDE RECORDS SUMMARY | 2018-03-28 10:20 | XMS REPORT ---
:1950 External Reference #:[id number] Author Organization [employer] Address [address] [place] [address] [place] [address] Phone [phone] Care Team Providers Name Role Phone Khadar Cortez III, MD Primary Care Physician Unavailable Payers Type Date Identification Numbers Payment Provider Subscriber Medicare Primary Effective: Policy Number: Medicare Jacey Adams 2011 [id number] PayID: [id number] [address] [place] [address] Medigap Part B Expires: 2015 Policy Number: [employer] Medicare Jacey Adams [id number] PayID: [id number] [address] [place] [address] Commercial Effective: 2011 Policy Number: [id number] Seminarysonja Adams Expires: 2016 Group Name: [id number] [address] PayID: [id number] [place] [address] Problems Date Description Provider Status Onset: 04/19/2011 [...] Description Comments Lives With Alone Occupation [employer] work Cigarette Use Pack Years - 35 [...] Tablets 5mg 30tab take 1 I10 Khadar Ramosate 2011 s tablet by Dana, mouth once M.D. daily Omeprazole / Active [...] 1 by mouth 466.0 Adwoa Hyclate 2013 - s twice a day Matt 07/26/ M.D. 2014 Guaifenesin ER 06/28/ Hx Tablets ER 600mg 60tab 1 by mouth 466.0 Adwoa 2013 - HR s twice a day Matt 07/26/ M.D. 2014 Triamcinolone 05/10/ Hx Cream 0.1% 60gm apply thin Adwoa Acetonide 2014 - film twice Matt 06/29/ daily M.D. 2014 Triamcinolone 04/20/ Hx Paste 0.1% 45gm apply to 705.81 Adwoa In Orabase 2013 - rash 2x per Matt 06/22/ day M.D. 2012 Colace 12/03/ Hx Capsules 100mg 60cap 1 po bid 564.00 Adwoa 2012 - Matt 05/29/ M.D. 2013 Chantix 05/28/ Hx Tablets 0.5mg X 11 QS take as Adwoa Starting Month 2011 - & 1 mg X directed Evans Gutierrez 10/08/ (0.5 mg po M.D. 2012 daily x3 days, 0.5 mg bid x 4 days, then 1 mg bid up to three months) Chantix 05/26/ Hx Tablets 1mg 60tab 1 tab po V15.82 Adwoa Continuing 2011 - bid Matt, Sekou Krueger M.D. 2011 Simvastatin 05/26/ Hx Tablets 20mg 30tab 1 po qd Adwoa 2011 Matt M.D. 2012 Simvastatin 01/02/ Hx Tablets 10mg 30tab take 1 Adwoa 2011 tablet at Gutierrez 05/26/ bedtime M.D. 2011 Chantix 10/10/ Hx Tablets 1mg 60tab 1 po bid 305.1 Adwoa 2011 Matt M.D. 2011 Lisinopril 09/12/ Hx Tablets 10mg 30tab 1 po qd 401.1 Adwoa 2011 Matt M.D. 2012 Atorvastatin 09/10/ Hx Tablets 10mg 30tab 1 po daily Josie Calcium 2011 Javier M.D. 2012 Robaxin-750 05/16/ Hx Tablets 750mg 50tab 1-2 [facility] s 8hrs prn Robin, 08/30/ muscle M.D. 2012 spasm Lipitor 05/10/ Hx Tablets 10mg 30tab 1 po qhs Partha 2010 - s Jeff Ray, 09/10/ M.D.,FACP 2012 Chantix 04/19/ Hx Tablets 0.5mg X 11 1mont 1 po bid 305.1 Adwoa 2010 - & 1 mg X h Matt, 10/10/ M.D. 2011 Diovan / Hx Tablets 80mg 14tab 1 po qd Adwoa - s Matt, M.D. 2011 Enalapril / Hx Tablets 5mg 90tab 1 po qd Unknown Maleate 0000 - s 2011 Amoxicillin 00/ Hx Capsules 500mg 4caps 4 tablets 1 Unknown 0000 - hour before 04/20/ dental work 2012 Omeprazole / Hx Capsules 20mg 90cap 1 po qd Unknown 0000 - DR s 2014 Pantoprazole / Hx Tablets DR 20mg 1 by mouth Unknown Sodium 0000 - every day 2015 Immunizations CPT Code Status Date Vaccine Lot # 61139 Given 05/14/2017 Pneumococcal Conjugate Vaccine 13 Valent [...] 0.01 NG/ML 0-0.06 38 [facility] - [facility] 08/19/2011 CPK (Creatine Kinase) 92 U/L 0-200 [...] Serum levels of PSA measured using the [employer] DXI Hybritech immunoassay should not be interpreted [...] Serum levels of PSA measured using the [employer] DXI Hybritech immunoassay should not be interpreted [...] than 189 MG/DL 31 RUN DATE: 05/28/12 [facility] LAB LIVE PAGE 1 RUN TIME: [address] [place] [address] Specimen Inquiry Name: JACEY ADAMS : [address]: Adwoa Gutierrez MD Acct: [id number] Unit: [id number] AGE: 61 Location: [facility] Re05/26/12 SEX: M Status: REG REF SPEC: [id number] ERNESTINA: 05/26/12-[address]: Adwoa Gutierrez MD REQ: [id number] RECD: 05/26/12 STATUS: COMP _ SOURCE: THROAT SPDESC: ORDERED: Throat Culture QUERIES: Medent Number [id number] Procedure Result Verified Site Throat Culture Final 05/28/12- 935 ML Organism 1 NORMAL ASCENCION Quantity 2+ Throat cultures are clinically indicated to detect the presence of group A strep, arcanobacterium and yeast. END OF REPORT * ML=Testing performed at Main Lab DEPARTMENT OF PATHOLOGY, [address] [place] [address] Geovany Mckinnon M.D. Director [facility] Permit #[id number] Desirable: Less than 200 MG/DL Borderline-High [...] 0.06 ng/mL NOT SUPPORTIVE OF DIAGNOSIS OF [place] 0.06 - 0.50 ng/ml INDETERMINATE: SUGGEST SERIAL STUDIES IF CLINICALLY INDICATED. Greater than 0.5 ng/mL CONSISTENT WITH DIAGNOSIS OF [place] . 39 CHOLESTEROL INTERPRETATION: Desirable: Less than [...] SERUM LEVELS OF PSA MEASURED USING THE SEL[employer] MICHELLE ACCESS HYBRITECH IMMUNOASSAY SHOULD NOT BE INTERPRETED ABSOLUTE EVIDENCE OF THE PRESENCE OR ABSENCE OF DISEASE. THE PSA VALUE SHOULD BE USED IN CONJUNCTION WITH OTHER PERTINENT CLINICAL DIAGNOSTIC PROCEDURES. 46 [facility] 47 Anion gap measurement may be of [...] Provider CPT E/M Dx Office Visit 10/17/2016 [facility] Internal Medicine Khadar Cortez, 82208 R13.10 2:20p - Donna Henry R07.0 Office Visit 08/09/2016 11:40a [facility] Medicine Khadar Cortez, 77255 R07.0 - Donna Henry Office Visit 10/03/2015 1:00p [facility] Medicine Adwoa Gutierrez M.D. 20150 L82.0 - [place] Office Visit 06/29/2015 9:00a [facility] Medicine Adwoa Gutierrez M.D. 27061 Z00.00 - [place] E78.0 I10 Z12.5 Office Visit 12/29/2014 10:00a [facility] Medicine Adwoa Gutierrez M.D. 16228 272.0 - [place] 401.1 Office Visit 11/22/2014 9:40a [facility] Medicine Adwoa Gutierrez M.D. 27283 842.10 - [place] 272.0 401.1 V76.44 Office Visit 07/26/2014 8:40a [facility] Medicine Adwoa Gutierrez M.D. 82314 681.11 - [place] Office Visit 06/28/2014 3:40p [facility] Medicine Adwoa Gutierrez M.D. 86578 V70.0 - [place] 272.0 401.1 845.13 466.0 Office Visit 12/21/2013 9:40a [facility] Medicine Adwoa Gutierrez M.D. 66020 V73.99 - [place] 401.1 272.0 Office Visit 06/22/2013 9:00a [facility] Medicine Adwoa Gutierrez M.D. 93331 V70.0 - [place] 401.1 272.0 V15.82 V76.44 530.85 780.79 V73.99 Office Visit 04/20/2013 1:40p [facility] Medicine Adwoa Gutierrez M.D. 46646 401.1 - [place] 272.0 V15.82 705.81 786.05 Office Visit 12/03/2012 1:40p [facility] Medicine Adwoa Gutierrez M.D. 07751 564.00 - [place] 530.85 Office Visit 10/08/2012 1:00p [facility] Medicine Adwoa Gutierrez M.D. 24581 272.0 - [place] 401.1 V15.82 389.9 790.6 Office Visit 06/18/2012 1:30p [facility] Medicine Josie Herrera 54543 V58.32 - oYhan Henry Office Visit 05/26/2012 10:40a [facility] Medicine Adwoa Gutierrez M.D. 09699 V70.0 - [place] V15.82 272.0 401.1 461.9 792.1 448.1 Office Visit 10/15/2011 9:40a [facility] Medicine Adwoa Gutierrez M.D. 11385 401.1 - [place] Office Visit 10/11/2011 10:00a [facility] Medicine Adwoa Gutierrez M.D. 56563 401.1 - [place] 305.1 Office Visit 09/27/2011 10:20a [facility] Medicine Adwoa Gutierrez M.D. 39710 787.91 - [place] 305.1 401.1 Office Visit 09/20/2011 3:00p [facility] M.D. 55596 726.5 C.M.A. Office Visit 09/13/2011 10:20a [facility] Internal Medicine - Adwoa Gutierrez M.D. 40715 401.1 [place] 305.1 Office Visit 08/30/2011 10:20a [facility] Adwoa Gutierrez M.D. 91263 843.8 - [place] 272.9 Office Visit 06/11/2011 11:15a [facility], 01106 723.1 [facility] [place] Office Visit 05/16/2011 1:30p [facility], 81097 723.1 [facility] [place] Office Visit 05/14/2011 2:40p DO Not Use Environmental Marketing Representative AT Adwoa Gutierrez 29618 305.1 Reese Henry 723.1 272.9 V76.51 V70.0 Office Visit 04/19/2011 10:00a DO Not Use Environmental Marketing Representative AT Adwoa Gutierrez M.D. 22735 305.1 [facility] 723.1 709.8 Plan of Care Future Appointment(s):2018 10:20 am - Khadar Cortez M.D. at [facility] Internal Medicine - Migjidbqp92/06/2018 - Khadar Cortez M.D.M54.2 CervicalgiaNew Xrays:MRI Cervical Spine WoReferral:John Nguyen M.D., Surgery ,BosnmcbiaqioB76.10 Dysphagia, unspecified
[2018-03-28] MEDS ORDERED: Sodium Bicarbonate 8.4% SYR* 10 ML SYRINGE IV ONE (10:57)
--- NOTE | 2018-03-28 12:31 | ED ---
Skin Complaint - HPI Summary HPI Summary: Pt here w/ Lt cheek abscess x 2 days - was more swollen but has now focalized to a head (no pustule). Denies fever, chills, N/V. H/o acne cysts on his face as a youth. Denies recent injury or excessive sweating, etc however he was started on a steroid recently for neck pain - this has improved but may have triggered acne. - History of Current Complaint Chief Complaint: EDRashSkinAbscess Time Seen by Provider: 03/28/18 10:17 Stated Complaint: ABSCESS Hx Obtained From: Patient Pain Intensity: 2 - Allergy/Home Medications Allergies/Adverse Reactions: Allergies Allergy/AdvReac Type Severity Reaction Status Date / Time No Known Allergies Allergy Verified 03/15/18 11:48 PMH/Surg Hx/FS Hx/Imm Hx Previously Healthy: Yes Endocrine/Hematology History: Denies: Hx Anticoagulant Therapy, Hx Blood Disorders, Hx Diabetes, Autoimmune Disease Cardiovascular History: Reports: Hx Hypertension - on meds - has white coat HTN Denies: Hx Pacemaker/ICD Respiratory History: Denies: Hx Asthma History: Denies: Hx Renal Disease Sensory History: Denies: Hx Hearing Aid Psychiatric History: Denies: Hx Panic Disorder - Surgical History Surgery Procedure, Year, and Place: tonsillectomy as a child,oral surgeries. left leg fx - surgical repair with leonor in place - Immunization History Immunizations Up to Date: Yes Infectious Disease History: No Infectious Disease History: Reports: Hx Shingles Denies: Hx of Known/Suspected MRSA, History Other Infectious Disease, Traveled Outside the [place] in Last 30 Days - Family History Known Family History: Positive: Cardiac Disease, Hypertension, Other - CVA, [place] - Social History Alcohol Use: None Substance Use Type: Reports: None Smoking Status (MU): Never Smoked Tobacco Review of Systems Constitutional: Negative Negative: Fever, Chills, Fatigue Eyes: Negative Negative: Photophobia, Blurred Vision, Diplopia Negative: Chest Pain Negative: Shortness Of Breath Negative: Vomiting, Nausea Positive: no symptoms reported Musculoskeletal: Negative Skin: Other - Lt cheek abscess Neurological: Negative Positive: Anxious All Other Systems Reviewed And Are Negative: Yes Physical Exam Triage Information Reviewed: Yes Vital Signs On Initial Exam: Initial Vitals Temp Pulse Resp BP Pulse Ox 98.4 F 74 16 158/88 97 03/28/18 10:11 03/28/18 10:11 03/28/18 10:11 03/28/18 10:11 03/28/18 10:11 Vital Signs Reviewed: Yes Appearance: Positive: Well-Appearing, No Pain Distress, Well-Nourished Skin: Positive: Warm, Skin Color Reflects Adequate Perfusion, Dry - nickel sized area of erythema over Lt cheek - indurated w/ central raised area - no vesicles, no pustules, no drainage - warm to touch, TTP Head/Face: Positive: Normal Head/Face Inspection - other than above, normal Eyes: Positive: Normal, EOMI ENT: Positive: Hearing grossly normal Neck: Positive: Supple, Nontender, No Lymphadenopathy Respiratory/Lung Sounds: Positive: Breath Sounds Present Cardiovascular: Positive: Normal Musculoskeletal: Positive: Normal, Strength/ROM Intact Neurological: Positive: Normal, Sensory/Motor Intact, Alert, Oriented to Person Place, Time, CN Intact II-III Psychiatric: Positive: Anxious Procedures - Incision and Drainage Left Face Anesthesia: Local, Lidocaine - + bicarb Instrument(s): Scalpel - #11 - 1-2cc purulent drainage expressed and cx'd Packing: Gauze - 1/4" plain - 1cm - hemodynamically stable - tolerated well Diagnostics - Vital Signs Vital Signs Temp Pulse Resp BP Pulse Ox 03/28/18 10:34 75 161/110 94 03/28/18 10:33 79 174/135 97 03/28/18 10:11 98.4 F 74 16 158/88 97 - Laboratory Lab Statement: Any lab studies that have been ordered have been reviewed, and results considered in the medical decision making process. Course/Dx - Course Course Of Treatment: Offered pt referral to derm/plastics given his infection is on his face and his daughter's wedding in next week. He declines and prefers to have procedure done here today. Tolerated well. BP is elevated d/t anxiety - was 150's/80's upon triage and elevated once in room (reports hospitals make him nervous). BP did reduced after established rapport and he denied BARAJAS, CP, visual change, SOB, fatigue, jaw pain - although anxiety reduced he is still anxious while here. Education about f/u and danger s/sx of when to return to ED. PT agrees w/ plan. - Diagnoses Provider Diagnoses: Facial abscess, Hypertension Discharge - Sign-Out/Discharge Documenting (check all that apply): Patient Departure - Discharge Plan Condition: Stable Disposition: HOME Prescriptions: Sulfamethox/Trimethoprim DS* [Bactrim DS 800/160 TAB*] 1 tab PO BID #20 tab Patient Education Materials: Abscess (ED), Hypertension (ED), Incision and Drainage (ED) Referrals: Khadar Cortez MD [Primary Care Provider] - Additional Instructions: Keep wound covered until Friday when you see your PCP - call today to schedule an appointment for wound recheck, removal of packing, etc. For pain, you may take ibuprofen with food Apply heat to encourage drainage Complete antibiotic as directed - take probiotic in between doses to prevent diarrhea. If you develop worsening of symptoms, return to ED Once wound closes completely, you may apply antibiotic ointment to aid in healing/reducing scarring. *If you lesion returns, follow-up with dermatology or plastic surgery for revision. NOTE: it is important that you recheck your blood pressure as it was high today. You mentioned concern about being here which may have triggered it to go up, but it is important that you have it rechecked. If in the meantime you develop chest pain, shortness of breath, jaw pain, headache, visual change or fatigue, return to the ED - Billing Disposition and Condition Condition: STABLE Disposition: Home
[2018-03-28 19:30] VITALS: BP 171/114
== END 2018-03-28 12:40 | disposition home or self-care (01) ==
LOC: ED 10:05
DX: L02.01 Cutaneous abscess of face (principal); I10 Essential (primary) hypertension
CPT/HCPCS: 87070; 87205; 87640; 87641; 96374; 99282